=== PATIENT | female | born 1950 | race African-American/Black ===

== ENCOUNTER 2018-04-07 08:52 | Emergency (ER) | payer MEDICARE ==
[~2018-04-07] VITALS: Ht 154.9 cm; Wt 89.8 kg
--- OUTSIDE RECORDS SUMMARY | 2018-04-07 08:54 | XMS REPORT | Continuity of Care Document ---
Author Author [facility] Interface Address Unknown Phone Unavailable Problems Problem Status Onset Date Classification Date Reported Comments Source Obesity Active Problem 03/29/2018 [facility] Arthritis Active Problem 03/29/2018 [facility] BMI 30.0-30.9,adult Active Problem 03/29/2018 [facility] Controlled type 2 diabetes mellitus without complication, without long-term current use of insulin Active Problem 03/29/2018 [facility] Essential hypertension Active Problem 03/29/2018 [facility] Gastroesophageal reflux disease without esophagitis Active Problem 03/29/2018 [facility] Acute bilateral low back pain without sciatica Active Diagnosis 02/27/2018 [facility] Mixed hyperlipidemia Active Problem 03/29/2018 [facility] Degenerative joint disease of low back Active Problem 03/29/2018 [facility] Breast cancer screening Active Diagnosis 03/29/2018 [facility] Chronic pain disorder Active Problem 03/29/2018 [facility] Low vitamin D level Active Problem 03/29/2018 [facility] Medications Medication Details Route Status Patient Instructions Ordering Provider Order Date Source Glimepiride 1 tablet with breakfast or the first main meal of the day Orally Active 1 MG Orally Once a day [facility] 03/28/2018 [facility] Ergocalciferol 1 capsule Orally Active 50768 UNIT Orally once a week [facility] 02/28/2018 [facility] Meloxicam 1 tablet Orally Active 15 MG Orally Once a day [place]02/26/2018 [facility] Methocarbamol 1 tablet Orally Active 750 MG Orally every 6 hrs as needed [facility] 02/26/2018 [facility] Tramadol HCl 1 tablet as needed Orally Active 50 mg Orally every 6 hrs as needed [facility] 02/26/2018 [facility] Alendronate Sodium 1 tablet Orally Active 10 MG Orally Once a day [facility] Losartan Potassium 1 tablet Orally Active 25 MG Orally Once a day [facility] Omeprazole 1 capsule Orally Active 40 MG Orally Once a day [facility] Metformin HCl 1 tablet with a meal Orally Active 500 MG Orally Once a day [facility] Amlodipine Besylate 1 tablet Orally Active 10 mg Orally Once a day [facility] Atorvastatin Calcium 1 tablet Orally Active 10 mg Orally Once a day [facility] Allergies, Adverse Reactions, Alerts Substance Category Reaction Severity Reaction type Status Date Reported Comments Source N.K.D.A. Adverse Reaction Info Not Available Adverse Reaction Active 03/28/2018 [facility] Immunizations Immunization Date Given Site Status Last Updated Comments Source Results Order Name Results Value Reference Range Date Interpretation Comments Source Vital Signs Vital Sign Value Date Comments Source Weight 198.6 03/28/2018 [facility] Height 62 03/28/2018 [facility] Temperature Oral (F) 98.3 F 03/28/2018 [facility] Heart Rate 77 03/28/2018 [facility] Diastolic (mm Hg) 81 03/28/2018 [facility] Systolic (mm Hg) 131 03/28/2018 [facility] Weight 202.1 02/26/2018 [facility] Height 62 02/26/2018 [facility] Temperature Oral (F) 97.7 F 02/26/2018 [facility] Heart Rate 62 02/26/2018 [facility] Diastolic (mm Hg) 84 02/26/2018 [facility] Systolic (mm Hg) 137 02/26/2018 [facility] Encounters Location Location Details Encounter Type Encounter Number Reason For Visit Attending Provider ADM Date DC Date Status Source Procedures Procedure Code Date Perfomer Comments Source
--- OUTSIDE RECORDS SUMMARY | 2018-04-07 08:54 | XMS REPORT ---
Author Author Maribel Sibley [facility] e[employer] Address Unknown Phone Unavailable Care Team Providers Care Poultry Buyer Name Role Phone Maribel Sibley Unavailable Allergies, Adverse Reactions, Alerts Substance Reaction Event Type N.K.D.A. Info Not Available Non Drug Allergy Problems Problem Type Condition Code Onset Dates Condition Status Assessment Controlled type 2 diabetes mellitus without complication, without long- term current use of insulin E11.9 Active Assessment Acute bilateral low back pain without sciatica M54.5 Active Assessment Essential hypertension I10 Active Problem Obesity (BMI 30-39.9) E66.9 Active Problem Arthritis M19.90 Active Problem BMI 30.0-30.9,adult Z68.30 Active Problem Controlled type 2 diabetes mellitus without complication, without long- term current use of insulin E11.9 Active Problem Essential hypertension I10 Active Problem Gastroesophageal reflux disease without esophagitis K21.9 Active Assessment Obesity (BMI 30-39.9) E66.9 Active Assessment BMI 30.0-30.9,adult Z68.30 Active Assessment Gastroesophageal reflux disease without esophagitis K21.9 Active Assessment Arthritis M19.90 Active Medications Medication Code System Code Instructions Start Date End Date Status Dosage Meloxicam [facility] 66258220933 15 MG Orally Once a day Feb 26, 2018 Mar 28, 2018 Active 1 tablet Methocarbamol ND 19524215113 750 MG Orally every 6 hrs as needed Feb 26, 2018 Mar 08, 2018 Active 1 tablet Alendronate Sodium ND 14015243347 10 MG Orally Once a day Active 1 tablet Losartan Potassium ND 73449295910 25 MG Orally Once a day Active 1 tablet Omeprazole ND 13825735678 40 MG Orally Once a day Active 1 capsule Tramadol HCl ND 72183822902 50 mg Orally every 6 hrs as needed Feb 26, 2018 Mar 08, 2018 Active 1 tablet as needed Metformin HCl ND 44471860170 500 MG Orally Once a day Active 1 tablet with a meal Amlodipine Besylate ND 60988313232 10 MG Orally Once a day Active 1 tablet Vital Signs Date/Time: Feb 26, 2018 BMI 36.96 Index Weight 202.1 lbs Height 62 in Temperature 97.7 F Cardiac Monitoring Heart Rate 62 /min Blood Pressure Diastolic 84 mm Hg Blood Pressure Systolic 137 mm Hg Results No Known Results Summary Purpose eClinicalWorks Submission
--- OUTSIDE RECORDS SUMMARY | 2018-04-07 08:54 | XMS REPORT ---
Author Author Maribel Sibley Organization e[employer] Address Unknown Phone Unavailable Care Team Providers Care Box Car Bracer Name Role Phone Maribel Sibley CP Unavailable Allergies No Known Allergies Problems Problem Type Condition Code Onset Dates Condition Status Problem Obesity (BMI 30-39.9) E66.9 Active Problem Arthritis M19.90 Active Problem BMI 30.0-30.9,adult Z68.30 Active Problem Controlled type 2 diabetes mellitus without complication, without long- term current use of insulin E11.9 Active Problem Essential hypertension I10 Active Problem Gastroesophageal reflux disease without esophagitis K21.9 Active Medications Medication Code System Code Instructions Start Date End Date Status Dosage Ergocalciferol [facility] [id number] 01739 UNIT Orally once a week Feb 28, 2018 May 29, 2018 Active 1 capsule Results No Known Results Summary Purpose eClinicalWorks Submission
--- OUTSIDE RECORDS SUMMARY | 2018-04-07 08:55 | XMS REPORT ---
Author Author Maribel Sibley [facility] eClinicalWorks Address Unknown Phone Unavailable Care Team Providers Care Rn Licensed Practical Name Role Phone Maribel Sibley Unavailable Allergies, Adverse Reactions, Alerts Substance Reaction Event Type N.K.D.A. Info Not Available Non Drug Allergy Problems Problem Type Condition Code Onset Dates Condition Status Problem Arthritis M19.90 Active Problem Gastroesophageal reflux disease without esophagitis K21.9 Active Problem Obesity (BMI 30-39.9) E66.9 Active Problem Mixed hyperlipidemia E78.2 Active Assessment Obesity (BMI 30-39.9) E66.9 Active Problem Degenerative joint disease of low back M47.9 Active Assessment Colon cancer screening Z12.11 Active Assessment Breast cancer screening Z12.31 Active Problem Chronic pain disorder G89.4 Active Problem Controlled type 2 diabetes mellitus without complication, without long- term current use of insulin E11.9 Active Problem Essential hypertension I10 Active Problem Low vitamin D level R79.89 Active Problem BMI 30.0-30.9,adult Z68.30 Active Assessment Low vitamin D level R79.89 Active Assessment Chronic pain disorder G89.4 Active Assessment BMI 30.0-30.9,adult Z68.30 Active Assessment Mixed hyperlipidemia E78.2 Active Assessment Arthritis M19.90 Active Assessment Controlled type 2 diabetes mellitus without complication, without long- term current use of insulin E11.9 Active Assessment Degenerative joint disease of low back M47.9 Active Assessment Essential hypertension I10 Active Assessment Gastroesophageal reflux disease without esophagitis K21.9 Active Medications Medication Code System Code Instructions Start Date End Date Status Dosage Omeprazole [facility] 97510331753 40 MG Orally Once a day Active 1 capsule Ergocalciferol [facility] 77754806575 80655 UNIT Orally once a week Feb 28, 2018 May 29, 2018 Active 1 capsule Metformin HCl [facility] 00542694981 500 MG Orally Once a day Inactive 1 tablet with a meal Losartan Potassium [facility] 14681714578 25 MG Orally Once a day Active 1 tablet Alendronate Sodium [facility] 12282017124 10 MG Orally Once a day Active 1 tablet Meloxicam [facility] 73408612711 15 MG Orally Once a day Feb 26, 2018 Active 1 tablet Atorvastatin Calcium [facility] 50069860189 10 mg Orally Once a day Active 1 tablet Glimepiride [facility] 73531415149 1 MG Orally Once a day Mar 28, 2018 Active 1 tablet with breakfast or the first main meal of the day Amlodipine Besylate [facility] 66506508148 10 mg Orally Once a day Active 1 tablet Vital Signs Date/Time: Mar 28, 2018 BMI 36.32 Index Weight 198.6 lbs Height 62 in Temperature 98.3 F Cardiac Monitoring Heart Rate 77 /min Blood Pressure Diastolic 81 mm Hg Blood Pressure Systolic 131 mm Hg Results No Known Results Summary Purpose eClinicalWorks Submission
[2018-04-07] MEDS ORDERED: KETOROLAC TROMETHAMINE 30 MG/ML VIAL IV PRN (09:30)
[2018-04-07] MEDS ORDERED: CLONIDINE HCL 0.1 MG TAB PO ONE (10:00)
[2018-04-07] MEDS ORDERED: IOPAMIDOL 370 MG/ML 50ML INFUS..BTL INJ ONE (11:00)
--- NOTE | 2018-04-07 11:12 | Diagnostic Imaging Report ---
EXAM: CT Abdomen and Pelvis WITH contrast INDICATION: Low back pain radiating to the pelvis, urinary frequency COMPARISON: None. TECHNIQUE: Abdomen and pelvis were scanned utilizing a multidetector helical scanner from the lung base to the pubic symphysis after administration of IV contrast. Coronal and sagittal reformations were obtained. Routine protocol was performed. Scan was performed when during portal venous phase. IV CONTRAST: 100 cc of Isovue 370 COMPLICATIONS: None RADIATION DOSE: Total DLP: 769.3 mGy*cm CTDIvol has been reviewed. It is below the limits set by the Radiation Protocol Committee (RPC). Dose modulation, iterative reconstruction, and/or weight based adjustment of the mA/kV was utilized to reduce the radiation dose to as low as reasonably achievable. FINDINGS: LINES and TUBES: None. LOWER THORAX: Unremarkable HEPATOBILIARY: Hypodensity in segment 4 adjacent to the falciform ligament likely represents focal fatty infiltration. No biliary ductal dilation. The gallbladder is unremarkable. SPLEEN: No splenomegaly. PANCREAS: No focal masses or ductal dilatation. ADRENALS: No adrenal nodules KIDNEYS/URETERS: Kidneys enhance symmetrically. No evidence of hydronephrosis or solid mass. Punctate 2 mm right mid pole and right lower pole renal stones. Punctate 1 mm left upper pole renal stone. GI TRACT: Appendix is normal. Extensive sigmoid colonic diverticulosis. There is mild diffuse apparent sigmoid wall thickening, however incompletely evaluated in the absence of oral contrast. There is no evidence of pericolonic stranding or fluid. PELVIC ORGANS/BLADDER: Unremarkable. LYMPH NODES: No lymphadenopathy. VESSELS: Unremarkable. PERITONEUM / RETROPERITONEUM: No free air or fluid. BONES AND SOFT TISSUES: Small fat-containing of local hernia. No acute osseous abnormality. No suspicious lytic or blastic lesions. CONCLUSION: Sigmoid diverticulosis with possible mild diffuse sigmoid colonic wall thickening, although incompletely evaluated in the absence of IV contrast. No surrounding inflammatory changes makes acute diverticulitis unlikely. Correlation with colonoscopy is suggested. Signed by: Dr. Sierra Phelan MD on 04/07/2018 11:09 AM
[2018-04-07] MEDS ORDERED: METRONIDAZOLE 500MG/NS 100ML 100 ML IV ONE (11:45)
[2018-04-07] MEDS ORDERED: HYDROCODONE/APAP 5MG-325MG TAB PO ONE (11:45)
[2018-04-07] MEDS ORDERED: CIPROFLOXACIN 500 MG TAB PO SCH (11:45)
[2018-04-07 12:19] VITALS: BP 118/79
== END 2018-04-07 12:22 | disposition home or self-care (01) ==
LOC: FSED 08:52
DX: K57.32 Diverticulitis of large intestine without perforation or abscess without bleeding (principal); Z88.0 Allergy status to penicillin
CPT/HCPCS: 74177; 80053; 81003; 85025; 99284; Q9967